=== PATIENT | female | born 1950 | race Caucasian/White ===

== ENCOUNTER → 2017-12-28 | Day surgery (SDC) | payer MEDICARE, BC ==
[~2017-12-28] MED LIST: Lactated Ringers 1,000 ML IV SCH; Midazolam 1 MG/ML 2 ML SDV ONE; Propofol 200 MG/20 ML SDV ONE; Sodium Chloride 0.9% 10 ML Syringe FLUSH PRN; fentaNYL 100 MCG/2 ML SDV ONE
--- NOTE | 2017-12-28 09:05 | PCM.HPR ---
H & P Addendum review - H & P Addendum Review Date of Original H & P: 12/13/17 Date Reviewed: 12/28/17 Time Reviewed: 09:00 Patient was Examined: No Changes
--- NOTE | 2017-12-28 09:41 | PCM.OPNOTE ---
- General Post-Op/Procedure Note Date of Surgery/Procedure: 12/28/17 Operative Procedure(s): Colonoscopy Findings: Normal Pre Op Diagnosis: FH Polyps Post-Op Diagnosis: Same Anesthesia Technique: MAC Primary Surgeon: Kevin Guillen Anesthesia Provider: Kristy Fleming Complications: None Condition: Good Free Text/Narrative:: Intake & Output 12/27/17 12/28/17 12/28/17 22:59 06:59 14:59 Intake Total 700 Balance 700
[2017-12-28 10:20] VITALS: BP 123/79
--- NOTE | 2017-12-28 14:40 | OR ---
Date of Procedure: 12/28/2017 PREOPERATIVE DIAGNOSIS: Family history of colon polyps. POSTOPERATIVE DIAGNOSIS: Normal colonoscopy. PROCEDURE: Colonoscopy. ANESTHESIA: IV sedation. DESCRIPTION OF PROCEDURE: The patient was brought to the procedure room, where she was placed on her left side and IV sedation administered. Digital rectal exam was performed, which was normal. Colonoscope was inserted and advanced to the level of the cecum without difficulty. Cecal position was confirmed by identifying the appendiceal lumen and ileocecal valve. Prep was good and surfaces were well visualized. Upon withdrawing the scope, the ascending, transverse, and descending colon were normal in appearance. Sigmoid colon and rectum were normal. Retroflexion was normal. Air was removed and the scope withdrawn. The patient tolerated the procedure well and returned to recovery in stable condition. Recommend routine colon screening again in 5 years. MODAba HOLGUIN MD /[id number]
== END | disposition home or self-care (01) ==
LOC: LL.SDS 08:06
PROVIDERS: ATTEND Surgery
DX: R19.4 Change in bowel habit (principal); I10 Essential (primary) hypertension; E11.9 Type 2 diabetes mellitus without complications; E78.5 Hyperlipidemia, unspecified; E03.9 Hypothyroidism, unspecified; K21.9 Gastro-esophageal reflux disease without esophagitis; Z79.82 Long term (current) use of aspirin; Z79.84 Long term (current) use of oral hypoglycemic drugs; Z79.899 Other long term (current) drug therapy; Z83.71 Family history of colonic polyps
CPT/HCPCS: 45378; J2250; J2704; J3010; J7120; 00812

== ENCOUNTER 2018-11-11 10:57 | Emergency (ER) | payer MEDICARE, BC ==
[2018-11-11 11:02] VITALS: BP 127/71
--- NOTE | 2018-11-11 12:23 | EDM.PDOC ---
ED HPI GENERAL MEDICAL PROBLEM - General Chief Complaint: General Stated Complaint: fall Time Seen by Provider: 11/11/18 11:00 Source of Information: Reports: Patient, Family History Limitations: Reports: No Limitations - History of Present Illness INITIAL COMMENTS - FREE TEXT/NARRATIVE: Patient is a 68-year-old female who was seen in the ER status post fall patient was walking on loose gravel and fell hitting her right side of her face right knee right ankle right foot. Duration: Resolved Prior to Arrival Quality: Reports: Ache Severity: Mild Improves with: Reports: Cold Therapy Worsens with: Reports: None Context: Reports: Trauma Associated Symptoms: Reports: No Other Symptoms left foot, right ankle and right knee Pain Score (Numeric/FACES): 8 - Related Data Allergies Allergy/AdvReac Type Severity Reaction Status Date / Time No Known Allergies Allergy Verified 11/11/18 11:02 Home Meds: Home Meds Aspirin 81 mg PO QAM 03/30/15 [History] Levothyroxine Sodium 88 mcg PO QAM 03/30/15 [History] Omeprazole [Prilosec] 20 mg PO QAM 03/30/15 [History] metFORMIN [Glucophage] 500 mg PO DAILY 03/30/15 [History] Fenofibrate,Micronized [Fenofibrate] 134 mg PO DAILY 12/28/17 [History] Multivitamin [Multivitamins] 1 each PO DAILY 12/28/17 [History] Ramipril 10 mg PO DAILY 12/28/17 [History] Magnesium Oxide [Magnesium] 400 mg PO BID 11/11/18 [History] Non-Formulary Medication [NF Drug] 4 tab PO DAILY 11/11/18 [History] Non-Formulary Medication [NF Drug] 200 mcg PO BID 11/11/18 [History] Phentermine HCl 0.5 tab PO DAILY 11/11/18 [History] Simvastatin [Zocor] 40 mg PO BEDTIME 11/11/18 [History] Past Medical History HEENT History: Reports: Impaired Vision Cardiovascular History: Reports: High Cholesterol, Hypertension Gastrointestinal History: Reports: GERD, Other (See Below) Other Gastrointestinal History: irritable bowel symptoms per pt Genitourinary History: Reports: UTI, 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 has hx. of left shouder repair and hx. of surgery for plantar fasciitis Psychiatric History: Reports: None Endocrine/Metabolic History: Reports: Diabetes, Type II, Hypothyroidism Dermatologic History: Reports: Other (See Below) Other Dermatologic History: vitaligo - Past Surgical History GI Surgical History: Reports: Colonoscopy Female Surgical History: Reports: Hysterectomy, Tubal Ligation, Other (See Below) Other Female Surgeries/Procedures: bladder tuck Musculoskeletal Surgical History: Reports: Other (See Below) Other Musculoskeletal Surgeries/Procedures:: Left shoulder scope, plantar fasciitis surgery, Social & Family History - Tobacco Use Smoking Status *Q: Never Smoker Second Hand Smoke Exposure: No - Caffeine Use Caffeine Use: Reports: Coffee - Recreational Drug Use Recreational Drug Use: No ED ROS GENERAL - Review of Systems Review Of Systems: See Below Constitutional: Reports: No Symptoms HEENT: Reports: No Symptoms Respiratory: Reports: No Symptoms Cardiovascular: Reports: No Symptoms Endocrine: Reports: No Symptoms GI/Abdominal: Reports: No Symptoms : Reports: No Symptoms Musculoskeletal: Reports: No Symptoms Skin: Reports: No Symptoms Neurological: Reports: No Symptoms Psychiatric: Reports: No Symptoms Hematologic/Lymphatic: Reports: No Symptoms Immunologic: Reports: No Symptoms ED EXAM, GENERAL - Physical Exam Exam: See Below Exam Limited By: No Limitations General Appearance: Alert, WD/WN, No Apparent Distress Ears: Normal External Exam, Normal Canal, Hearing Grossly Normal, Normal TMs Ear Exam: Bilateral Ear: Auricle Normal, Canal Normal, TM normal Nose: Normal Inspection, Normal Mucosa, No Blood Throat/Mouth: Normal Inspection, Normal Lips, Normal Teeth, Normal Gums, Normal Oropharynx, Normal Voice, No Airway Compromise Head: Facial Swelling (Right eyelids ecchymosis and abrasion over the right cheek) Neck: Normal Inspection, Supple, Non-Tender, Full Range of Motion Respiratory/Chest: No Respiratory Distress, Lungs Clear, Normal Breath Sounds, No Accessory Muscle Use, Chest Non-Tender Cardiovascular: Normal Peripheral Pulses, Regular Rate, Rhythm, No Edema, No Gallop, No JVD, No Murmur, No Rub GI/Abdominal: Normal Bowel Sounds, Soft, Non-Tender, No Organomegaly, No Distention, No Abnormal Bruit, No Mass Back Exam: Normal Inspection, Full Range of Motion, NT Extremities: Pedal Edema (Left side), Limited Range of Motion (Right knee has full range of motion passively tender to palpation but weightbearing fine no x- rays obtained), Other (Right ankle swelling and tender x-ray negative/right topline beading machine tender and swelling x-rays negative for fracture). No: No Pedal Edema ( Left side) Neurological: Alert, Oriented, CN II-XII Intact, Normal Cognition, Normal Gait, Normal Reflexes, No Motor/Sensory Deficits Psychiatric: Normal Affect, Normal Mood Skin Exam: Warm, Dry, Intact, Normal Color, No Rash, Other (Right cheek abrasion ) Course - Vital Signs Last Recorded V/S: Last Vital Signs Temp 98.1 F 11/11/18 10:58 Pulse 81 11/11/18 10:58 Resp 16 11/11/18 10:58 BP 127/71 11/11/18 10:58 Pulse Ox 99 11/11/18 10:58 - Orders/Labs/Meds Orders: Active Orders 24 hr Category Date Time Status Ankle Min 3V Rt [CR] Stat Exams 11/11/18 11:37 Ordered Foot Comp Min 3V Lt [CR] Stat Exams 11/11/18 11:38 Ordered Departure - Departure Time of Disposition: 12:26 Disposition: Home, Self-Care 01 Condition: Fair Clinical Impression: Abrasion, face w/o infection, Swelling of right ankle joint, Pain and swelling of right knee, Swelling of left foot Ecchymosis of eye Qualifiers: Encounter type: initial encounter Laterality: right Qualified Code(s): S05.11XA - Contusion of eyeball and orbital tissues, right eye, initial encounter - Discharge Information *PRESCRIPTION DRUG MONITORING PROGRAM REVIEWED*: No *COPY OF PRESCRIPTION DRUG MONITORING REPORT IN PATIENT TRINI: No Instructions: Wound Care, Adult Referrals: Lizbet Sebastian NP [Primary Care Provider] - Care Plan Goals: At this time we will apply Neosporin to the cheek area right side sent home patient with ice to right ankle left foot right knee 20 minutes on and 20 minutes off follow-up with primary as needed no fracture seen on x-rays patient ambulating fair - My Orders Last 24 Hours: My Active Orders 11/11/18 11:37 Ankle Min 3V Rt [CR] Stat 11/11/18 11:38 Foot Comp Min 3V Lt [CR] Stat - Assessment/Plan Last 24 Hours: My Active Orders 11/11/18 11:37 Ankle Min 3V Rt [CR] Stat 04/28/19 11:38 Foot Comp Min 3V Lt [CR] Stat
[2018-11-11] MEDS ORDERED: Bacitracin/Neomycin/Polymyxin B Oint 0.9 GM U/D Packet TOP ONE (12:29)
== END 2018-11-11 12:57 | disposition home or self-care (01) ==
LOC: LL.ED 10:57
DX: S05.11XA Contusion of eyeball and orbital tissues, right eye, initial encounter (principal); R22.41 Localized swelling, mass and lump, right lower limb; I10 Essential (primary) hypertension; E78.00 Pure hypercholesterolemia, unspecified; K21.9 Gastro-esophageal reflux disease without esophagitis; E11.9 Type 2 diabetes mellitus without complications; E03.9 Hypothyroidism, unspecified; Z79.82 Long term (current) use of aspirin; Z79.84 Long term (current) use of oral hypoglycemic drugs; Z79.899 Other long term (current) drug therapy; W19.XXXA Unspecified fall, initial encounter
CPT/HCPCS: 73610-RT; 73630-LT; 99283; 99284-25

== ENCOUNTER → 2018-11-22 | Day surgery (SDC) | payer MEDICARE, BC ==
[~2018-11-22] MED LIST changes: -fentaNYL 100 MCG/2 ML SDV ONE
--- NOTE | 2018-11-22 09:14 | PCM.PN ---
- General Info Date of Service: 11/22/18 - Review of Systems Systems Review Comment:: 68-year-old female referred for colonoscopy. She has been having symptoms of diarrhea which is unexplained. She is medically stable to proceed today. Her recent history and physical is reviewed and no significant changes are noted. I discussed the proposed colonoscopy with the patient. She agrees to proceed accepting risks. - Patient Data Vitals - Most Recent: Last Vital Signs Temp 99.0 F 11/22/18 08:39 Pulse 68 11/22/18 08:39 Resp 20 11/22/18 08:39 BP 127/82 11/22/18 08:39 Pulse Ox 95 11/22/18 08:39 Weight - Most Recent: 74.843 kg Med Orders - Current: Current Medications Lactated Ringer's (Ringers, Lactated) 1,000 mls @ 125 mls/hr IV ASDIRECTED CRISTINA Last Admin: 11/22/18 08:46 Dose: 125 mls/hr Sodium Chloride (Saline Flush) 10 ml FLUSH ASDIRECTED PRN PRN Reason: Keep Vein Open Discontinued Medications Midazolam HCl (Versed 1 Mg/Ml) Confirm Administered Dose 2 mg .ROUTE .STK-MED ONE Stop: 11/22/18 08:20 Propofol (Diprivan 20 Ml) Confirm Administered Dose 200 mg .ROUTE .STK-MED ONE Stop: 11/22/18 08:20 - Problem List Review Problem List Initiated/Reviewed/Updated: Yes - Assessment Assessment:: unexplained diarrhea - Plan Plan:: colonoscopy
--- NOTE | 2018-11-22 09:54 | PCM.OPNOTE ---
- General Post-Op/Procedure Note Date of Surgery/Procedure: 11/22/18 Operative Procedure(s): Colonoscopy with Biopsy Findings: Normal appearing colon no visible inflammation or lesions Pre Op Diagnosis: Unexplained Diarrhea Post-Op Diagnosis: Normal Colon Anesthesia Technique: MAC Primary Surgeon: Malik George Pathology: Biopsies of Right and Left Colon Output, Urine Amount: 0 EBL in mLs: 2 Condition: Good Free Text/Narrative:: Intake & Output 11/21/18 11/22/18 11/22/18 22:59 06:59 14:59 Intake Total 160 Balance 160
[2018-11-22 11:35] VITALS: BP 118/78
--- NOTE | 2018-11-22 11:58 | OR ---
Date of Procedure: 11/22/2018 PREOPERATIVE DIAGNOSIS: Unexplained diarrhea. POSTOPERATIVE DIAGNOSIS: Normal colon. OPERATION PERFORMED: Colonoscopy with biopsy. INDICATIONS FOR SURGERY: This 68-year-old female has developed unexplained diarrhea which has persisted for several months. She is referred for diagnostic colonoscopy. FINDINGS: The lining of the colon and rectum appeared normal. There was no hyperemia or visible signs of inflammation. No polyps or other abnormalities were noted. The ileocecal valve appeared normal. This valve was not able to be cannulated, but no visible signs of inflammation in the region of the valve were seen. DESCRIPTION OF PROCEDURE: The patient was taken to the operating room. She was given intravenous sedation, and with her in the left lateral decubitus position, digital rectal exam was performed showing no rectal masses. The Olympus colonoscope was inserted into the rectum. Retroflexed examination of the rectal canal was performed. The scope was then carefully advanced under direct visualization through the entire length of the colon until the cecum was reached. Cecal acquisition was confirmed by noting the normal internal cecal anatomy including the appendiceal orifice and ileocecal valve. The light was also noted to transilluminate the abdominal wall in the right lower quadrant. Attempts were made to cannulate the ileocecal valve, but this could not be safely achieved and so it was not performed. The scope was then slowly withdrawn sequentially re-examining the colonic segments. During withdrawal of the scope, random biopsies were taken from the left and right sides of the colon. There was no sign of any complication, and after the colon and rectum had been fully examined, the scope was removed, and the patient was taken from the operating room in satisfactory condition. ESTIMATED BLOOD LOSS: 2 mL. COMPLICATIONS: None. PROGNOSIS: Good. DIANNA George MD /[id number]
== END | disposition home or self-care (01) ==
LOC: LL.SDS 08:08
PROVIDERS: ATTEND Surgery
DX: K52.832 Lymphocytic colitis (principal); I10 Essential (primary) hypertension; E78.5 Hyperlipidemia, unspecified; E11.9 Type 2 diabetes mellitus without complications; K21.9 Gastro-esophageal reflux disease without esophagitis; E03.9 Hypothyroidism, unspecified; Z79.83 Long term (current) use of bisphosphonates; Z79.84 Long term (current) use of oral hypoglycemic drugs; Z79.899 Other long term (current) drug therapy
CPT/HCPCS: 00812; 45380; J2250; J2704; J7120; 88305